=== PATIENT | female | born 1990 | race Caucasian/White ===

== ENCOUNTER 2023-01-18 19:18 | Outpatient (CLI) | payer OTHER, SELFPAY ==
[2023-01-18 15:14] LABS: TSH (W/Ref FT4) 1.54 uIU/mL (0.36-3.74)
== END 2023-01-18 19:19 | disposition home or self-care (01) ==
LOC: LBO 19:19
PROVIDERS: Visit Provider Advanced Practice Midwife
DX: O99.281 Endocrine, nutritional and metabolic diseases complicating pregnancy, first trimester (principal); E03.9 Hypothyroidism, unspecified; Z3A.01 Less than 8 weeks gestation of pregnancy
CPT/HCPCS: 36415; 84443

== ENCOUNTER 2023-01-31 09:46 | Outpatient (CLI) | payer OTHER, SELFPAY ==
--- OUTSIDE RECORDS SUMMARY | 2023-01-31 09:50 | XMS_ITS | Patient Health Record ---
Author Name Unknown Organization [facility] Address [address] [facility] [facility] [place] [address] Care Team Providers Care Carver And Checkerer Specials Name Role Phone Vicente Link Unavailable [phone] Allergies No Known Allergies Reason For Referral No Information Medications Medication SIG (Take, Route, Fr equency, Duration) Notes Start Date End Date Status Atorvastatin Calcium Active Active Daily Vitamin Active Social History Tobacco Use: Social History Observation Description Date Smoking Status WARNING: Information temporarily unavailable Tobacco Use/Smoking Question Answer Notes Are you a former smoker Alcohol Screen Question Answer Notes Did you have a drink containing alcohol in the p ast year? Yes Points 0 Interpretation Negative Sexual History Question Answer Notes Had sex in the past 12 months (vaginal, oral, or anal)? Yes Tobacco use other than smoking: Question Answer Notes Are you an other tobacco user? No Plan Of Treatment No Information Insurance Providers Payer Name Payer Address Payer Phone Subscriber Number Group Number Insured Name Patient Relationship to Insured Coverage Start Date Coverage End Date [employer] Choice POS [address] [place], [place] [phone] [id number] CaraFredKristen Self - patient is the insured Medical (General) History Medical History History ICD Code unknown allergies high cholesterol
--- OUTSIDE RECORDS SUMMARY | 2023-01-31 09:50 | XMS_ITS | Continuity of Care Document ---
Author Name Jose LAGUERRE FaceTagsJULIA Organization [facility] Care Team Providers Care Stamp Analyst Name Role Phone [facility] SHADE FaceTagsPREMA Unavailable Unavailable Problems Problem Status Onset Date Classification Date Reported Comments Source No data available for this section 11/20/2020 [facility] Immunizations Immunization Date Given Site Status Last Updated Comments So urce No data available for this section completed [facility] Procedures Procedure Code Date Perfomer Comments Source No data available for this section [facility]
[2023-01-31 10:22] LABS: HCG Quant, Pregnancy 31683 mIU/mL (1-3)
== END 2023-01-31 09:47 | disposition home or self-care (01) ==
LOC: LBO 09:48
PROVIDERS: Visit Provider Advanced Practice Midwife
DX: Z34.90 Encounter for supervision of normal pregnancy, unspecified, unspecified trimester (principal)
CPT/HCPCS: 36415; 84702

== ENCOUNTER 2023-02-02 02:07 | Outpatient (CLI) | payer OTHER, SELFPAY ==
[2023-02-02 10:16] LABS: HCG Quant, Pregnancy 40414 mIU/mL (1-3)
== END 2023-02-02 02:08 | disposition home or self-care (01) ==
LOC: LBO 02:07
PROVIDERS: Visit Provider Advanced Practice Midwife
DX: Z34.91 Encounter for supervision of normal pregnancy, unspecified, first trimester (principal)
CPT/HCPCS: 36415; 84702

== ENCOUNTER 2023-03-08 04:25 | Outpatient (CLI) | payer OTHER, SELFPAY ==
[2023-03-08 15:39] LABS: Panorama Kit Sent via Fed Ex
[2023-03-08 15:52] LABS: Abs Immature Grans 0.04 10^3/uL (0.0-0.06); Absolute Basophil Count 0.05 10^3/uL (0.0-0.2); Absolute Eosinophil Count 0.13 10^3/uL (0.0-0.7); Absolute Lymphocyte Count 2.25 10^3/uL (1.2-3.4); Absolute Monocyte Count 0.54 10^3/uL (0.1-0.8); Absolute Neutrophil Count 5.93 10^3/uL (1.2-6.7); Basophils % 0.6; Eosinophils % 1.5; Immature Grans % 0.4; Lymphocytes % 25.2; MCH 32.2 pg (27.0-33.0); MCHC 35.1 % (32.0-36.0); MCV 92 fL (80-95); MPV 9.6 fL (8.0-11.0); Neutrophils % 66.3; Platelet Count 297 10^3/uL (130-400); RBC 4.04 10^6/uL (3.93-5.22); RDW 11.1 % (11.7-14.6); RDW-SD 37.9 fL; WBC 8.94 10^3/uL (4.4-10.8)
[2023-03-08 18:40] LABS: TSH (W/Ref FT4) 1.36 uIU/mL (0.36-3.74)
[2023-03-09 08:12] LABS: Varicella IgG Antibody Positive (See Note)
[2023-03-09 08:16] LABS: Rubella IgG Ab (UVM) Positive (See Note)
[2023-03-09 08:28] LABS: Hepatitis B Surface Ag Negative (Negative)
[2023-03-09 09:55] LABS: Hepatitis C Ab w Rflx HCV PCR Negative (Negative)
[2023-03-09 10:03] LABS: HIV-1/2 Ag & Ab Screen Negative (Negative)
[2023-03-10 14:03] LABS: Syphilis IgG w/Reflex Nonreactive (Nonreactive)
== END 2023-03-08 04:26 | disposition home or self-care (01) ==
LOC: LBO 04:25
PROVIDERS: Visit Provider Advanced Practice Midwife
DX: Z34.91 Encounter for supervision of normal pregnancy, unspecified, first trimester
CPT/HCPCS: 36415; 86787; 86803; 86850; 86900; 86901; 87340; 87389; 84443; 85025; 86762; 86780

== ENCOUNTER 2023-03-08 15:30 | Outpatient (REF) | payer OTHER, SELFPAY ==
[2023-03-08 17:34] LABS: *AMPHETAMINES SCREEN URINE Negative (Negative); *BARBITURATES SCREEN URINE Negative (Negative); *BENZODIAZEPINES SCREEN URINE Negative (Negative); Cannabinoids THC Negative (Negative); Cocaine Screen,Urine Negative (Negative); METHADONE URINE SCREEN Negative (Negative); OPIATES URINE SCREEN Negative (Negative); Tricyclic Antidepressants Negative (Negative)
[2023-03-10 13:01] LABS: Chlamydia Result Negative (Negative); GC Result Negative (Negative)
[2023-03-15 10:39] LABS: Buprenorphine Negative ng/mL (Cutoff: 5.0); Norbuprenorphine Negative ng/mL (Cutoff: 2.5)
== END 2023-03-08 15:31 | disposition home or self-care (01) ==
LOC: LBN 15:30
PROVIDERS: Visit Provider Advanced Practice Midwife
DX: Z34.91 Encounter for supervision of normal pregnancy, unspecified, first trimester (principal); Z3A.11 11 weeks gestation of pregnancy; Z11.3 Encounter for screening for infections with a predominantly sexual mode of transmission
CPT/HCPCS: 80307; 80348; 87491; 87591; 87086

== ENCOUNTER 2023-04-11 11:43 | Outpatient (CLI) | payer OTHER, SELFPAY ==
[2023-04-14 17:35] LABS: AFP 42.6 ng/mL; Calculated age at EDD 34 years; Cigarette smoking status non-Smoker; GA used in risk estimate Dates estimate; IVF Pregnancy No; Initial or repeat testing Initial testing; Insulin dependent diabetes No; Maternal Weight 128 lbs; Number of Fetuses 1; Physician Phone Number 802-748-7300; Prev Pregnancy w/NTD No; RECOMMENDED FOLLOW UP None.; Results Summary Normal risk
== END 2023-04-11 11:44 | disposition home or self-care (01) ==
LOC: LBO 11:43
PROVIDERS: Visit Provider Advanced Practice Midwife
DX: Z34.92 Encounter for supervision of normal pregnancy, unspecified, second trimester (principal); Z3A.16 16 weeks gestation of pregnancy; Z36.89 Encounter for other specified antenatal screening
CPT/HCPCS: 36415; 82105

== ENCOUNTER 2023-05-26 17:40 | Observation (INO) | payer OTHER, SELFPAY ==
[2023-05-26 16:05] VITALS: BP 117/77; PULSE 76; RESP 16; TEMP 36.7
[2023-05-26 16:44] LABS: Bilirubin Negative (Negative); Blood Negative (Negative); Clarity Clear (Clear); Glucose Negative (Negative); Ketones Negative (Negative); Leukocyte Esterase Negative (Negative); Nitrite Negative (Negative); Urobilinogen 0.2 mg/dL (Up to 0.2)
[2023-05-26] MEDS: Lactated Ringers 1,000 ML 1000 ML IV (17:07)
[2023-05-26 17:40] VITALS: BP 117/77; PULSE 76; RESP 16; TEMP 36.7
--- NOTE | 2023-05-26 17:41 | HPE_ITS ---
Date of service: 05/26/23 Time of Service: 16:40 Assessment and Plan Assessment and plan (1) uterine contractions in second trimester, antepartum: Status: Acute Assessment and plan: 1. SSE is negative for dilation, Vaginal pathogen screen negative for infection, urine dip is normal 2. IV hydration ordered 3. Plan to discharge to home after IV hydration and encourage rest for the weekend OB-HPI Labor/Delivery History of Present Illness Reason for Visit: NST Chief Complaint: Uterine Contractions (tightening and mild cramping). KENNEY Calculator Estimated Delivery Date Method Current WG Current Estimate 09/25/23 LMP (Certain) 22w 4d Other Estimates 09/26/23 Ultrasound #1 22w 3d Comments: Kristen presented to during work with complaint of cramping today. Denies LOF or vaginal bleeding. States she feels this often. Agreed to assessment. KH History of Present Expected Delivery Route/Plan - CNM FOB/ - Dwayne Galvan (first child) BB Specific Issues/Plan 1. 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 Plan [facility] [place] 2 [place] 05/07 & [facility] consult 1b. [facility] recommends obtain old ECG or do new one (patient will bring info to next appt for records release 05/30/23) Notify CLINICAL ASSISTANT PROFESSOR and Pediatrics but should not prevent delivery at [facility] Note sent 05/09/23 to both groups 1c. marginal cord insertion, US 32 weeks scheduled 2. Hx Familial Hypercholesterolemia, was taking Crestor but stopped 3. Hx Hypothyroidism, taking levothyroxine 50 mcg, TSH 1.54 on 01/18/23-1.36 4. 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 Desires cfDNA screen: low risk x5, male Assessment: History Reviewed & Current Review of Systems All systems reviewed & are unremarkable except as noted in HPI and below (no LOF or bleeding) PFSH All Active Problems (Updated 05/26/23 @ 17:45 by Lorri Durand CNM) uterine contractions in second trimester, antepartum (Acute) Marginal insertion of umbilical cord affecting management of mother (Acute) (Acute) Familial hypercholesterolemia (Acute) Yyjkq-Xtnkkueal-Yvooc (WPW) syndrome (Acute) Hypothyroid in , antepartum (Acute) Missed menses (Acute) Medical History (Updated 05/26/23 @ 17:45 by Lorri Durand CNM) History of infertility Social History Smoking/Tobacco Use Status: Never Smoking risk assessment performed?: Yes History History 1 Para 0 Hx # Term Pregnancies 0 Multiple births 0 Hx # Pregnancies 0 Ectopic pregnancies 0 AB induced 0 Hx Number of Living Children 0 AB spontaneous 0 Meds Allergies and Home Medications Allergies Allergy/AdvReac Type Severity Reaction Status Date / Time No Known Drug Allergies Allergy Other (See Verified 05/03/23 08:48 Comment) Home Medications Medication Instructions Recorded Confirmed Type vitamin with calcium 1 tab PO DAILY #90 tabs 01/18/23 05/03/23 Rx no.72-iron 27 mg-folic acid 1 mg tablet ( Plus (calcium carbonate)) levothyroxine 50 mcg capsule 50 mcg PO DAILY #90 caps 05/03/23 05/03/23 Rx Exam Constitutional Constitutional: no acute distress Detailed Labor and Delivery Exam Irwin Score: Cervical Points Exam 0 1 2 3 Dilation Closed 1-2cm 3-4 cm 5-6cm Effacement 0-30% 40-50% 60-70% 80% Consistency Firm Medium Soft Station -3 -2 -1,0 +1,+2 Position Posterior Mid Anterior Monitor Mode: External Contraction Frequency(min): irregular Contraction Duration(sec): 20-40 Contraction Intensity: Mild Comments: SSE done, cervix is long, thick and closed, minimal vaginal discharge that appears physiologic. KH Fetus A Heart Rate Baseline: 130 HEENT Exam HEENT Exam: Normal Neck Exam Neck Exam: Normal Chest/Brest/Axilla Exam Chest Exam: Normal Breast Exam Breast Exam: Not Done Respiratory Exam Respiratory Exam: Normal Cardiovascular Exam Cardiovascular Exam: Normal Abdominal Exam Abdominal Exam: Normal Rectal Exam Rectal Exam: Not Done Exam Exam: Normal Extremities Exam Extremities Exam: Normal Back/Spine/Pelvis Exam Back Exam: Not Done Pelvis Adequate: Yes Skin Exam Skin Exam: Normal Neurological Exam Neurological Exam: Normal Psychiatric Exam Psychiatric Exam: Normal Results Abnormal Lab Findings: 05/26/23 16:30 Vaginal Vaginitis Screen - Final Risk Assessment Risk for Shoulder Dystocia Historical/Initial OB: NEGATIVE FOR: Pelvic Abnormality, Pre- BMI>30, Previous Shoulder Dystocia or Previous Macrosomia Risk for Pre-Eclampsia Date Initiated/Initials: not indicated, jk Yes, if one or more: NEGATIVE FOR: Hx Pre-E/Gest HTN, Chronic HTN, Multiple Gestation, Pre-gestational DM, Renal Disease, Systemic Lupus or APA Syndrome Yes, if 2 or more: POSITIVE FOR: Nulliparity; NEGATIVE FOR: Age>= 35 yrs, >10yr btwn pregnancies, BMI>30, ethinicty, Mother/Sister w/ Pre-E or Previous IUGR Risk for Post- Hemorrhage Initial: NEGATIVE FOR: Multiple Gestation, Previous PPH, Known Clotting Deficiency, Grand Multiparity or Anticoagulation Risks Reviewed Risks Reviewed Upon Admission: No ( contractions without labor)
--- NOTE | 2023-05-26 17:50 | DSE_ITS ---
Date of service: 05/26/23 Time of Service: 17:50 DS: Diagnosis Discharge Diagnosis (1) uterine contractions in second trimester, antepartum: Status: Acute Asessment and Plan: 1. Exam reveals patient is not in labor 2. Vaginal pathogen is negative X 3 3. IV hydration decreased frequency of uterine tightening 4. Discharged to home, plans to be out of work for the weekend and will call with any worsening symptoms. 5. Has follow up visit 05/30/23. Discharge Plan Disposition Patient Disposition: Home Condition: Good Discharge Details Reason For Visit: NST Attending Provider: Lorri Durand Primary Care Provider: Unknown,Unknown Hospital Course Hospital Course: Negative assessment for labor or vaginal infection. Cervix is long thick and closed on speculum exam. IV hydration and discharge to home to call if sy mptoms return or worsen. Home Meds and New Rx's Prescriptions: Continued levothyroxine 50 mcg capsule 50 mcg PO DAILY Qty: 90 3RF Plus (calcium carb) 27 mg iron- 1 mg tablet 1 tab PO DAILY Qty: 90 4RF Discharge Instructions Instructions: Labor (GEN) Activity:: Activity as Tolerated Activity:: Activity as Tolerated Equipment/Supplies:: No Equipment Needed Diet:: As Tolerated Discharge Orders Discharge Orders: Discharge Order (Routine); Ordered 05/26/23 Ordered By: Lorri Durand Discharge Data Discharge Physician: Lorri Durand OB:DS Summary Summary Procedures: Ante- patient. Contraception Discussed Contraception Discussed: No (N/A antepartum patient), Status at Discharge Functional status at discharge: independent ambulation Overall status at discharge: patient is back to baseline Mental Status: mental status grossly normal Speech and Movement: speech and movement normal Mood: congruent mood Affect: normal affect Time Spent with Patient providing and/or coordinating discharge services: Less than 30 minutes Quality:SDOH Health Related Social Needs: No Data to Display Exam Constitutional Constitutional: no acute distress, average body habitus and cooperative HEENT Exam HEENT Exam: Normal Neck Exam Neck Exam: Normal (normal visual inspection) Respiratory Exam Respiratory Exam: Normal Cardiovascular Exam Cardiovascular Exam: Normal Abdominal Exam Abdomen: Other (normal exam) Fundal Exam Comment: uterine size equals dates Rectal Exam Rectal Exam: Not Done Exam Perineum: Normal Comments: vagina and cervix normal Extremities Exam Extremity Exam: Normal (denies calf tenderness) and Full ROM Back/Spine/Pelvis Exam Back Exam: Normal Skin Exam Skin Exam: Normal Neurological Exam Neurological Exam: Normal Psychiatric Exam Psychiatric Exam: Normal PFSH All Active Problems uterine contractions in second trimester, antepartum (Acute) Marginal insertion of umbilical cord affecting management of mother (Acute) (Acute) Familial hypercholesterolemia (Acute) Lbkxo-Zwmozsybw-Bbttd (WPW) syndrome (Acute) Hypothyroid in , antepartum (Acute) Missed menses (Acute) Medical History History of infertility Social History Smoking/Tobacco Use Status: Never Smoking risk assessment performed?: Yes History History 1 Para 0 Hx # Term Pregnancies 0 Multiple births 0 Hx # Pregnancies 0 Ectopic pregnancies 0 AB induced 0 Hx Number of Living Children 0 AB spontaneous 0 DS: Data Data Completed and Pending Labs on day of discharge: Labs from last 24 hours 05/26/23 16:30 Urine Color Yellow Urine Clarity Clear Urine pH 6.0 Ur Specific Hutchinson 1.010 Urine Protein Negative Urine Ketones Negative Urine Blood Negative Urine Nitrite Negative Urine Bilirubin Negative Urine Urobilinogen 0.2 Ur Leukocyte Esterase Negative Urine Glucose Negative 05/26/23 16:30 Urine - Clean Catch Urine Culture - Pending Preliminary micro results at discharge 05/26/23 16:30 Urine Culture - Pending Urine - Clean Catch
== END 2023-05-26 17:55 | disposition home or self-care (01) ==
LOC: BCD 17:54 → OBS 17:54
PROVIDERS: Admitting Provider Advanced Practice Midwife; Visit Provider Advanced Practice Midwife
DX: O47.02 False labor before 37 completed weeks of gestation, second trimester (principal); Z3A.22 22 weeks gestation of pregnancy; O99.282 Endocrine, nutritional and metabolic diseases complicating pregnancy, second trimester; Z14.1 Cystic fibrosis carrier; O26.892 Other specified pregnancy related conditions, second trimester; E03.9 Hypothyroidism, unspecified; I45.6 Pre-excitation syndrome; O99.412 Diseases of the circulatory system complicating pregnancy, second trimester
CPT/HCPCS: 96360; 81003; 87086; 87480; 87510; 87660

== ENCOUNTER 2023-06-30 01:17 | Outpatient (CLI) | payer OTHER, SELFPAY ==
[2023-06-30 09:51] LABS: Glucose,1 Hr (Glucola) 130 mg/dL (80-140)
[2023-06-30 09:54] LABS: HCT 39.8 % (36.0-46.0); HGB 13.9 g/dL (11.2-15.7); MCH 33.4 pg (27.0-33.0); MCHC 34.9 % (32.0-36.0); MCV 96 fL (80-95); MPV 10.2 fL (8.0-11.0); Platelet Count 290 10^3/uL (130-400); RBC 4.16 10^6/uL (3.93-5.22); RDW-SD 42.4 fL; WBC 9.68 10^3/uL (4.4-10.8)
[2023-06-30 10:05] LABS: TSH (W/Ref FT4) 1.55 uIU/mL (0.36-3.74)
== END 2023-06-30 01:18 | disposition home or self-care (01) ==
LOC: LBO 01:17
PROVIDERS: Advanced Practice Midwife; PCP Nurse Practitioner Family; Visit Provider Advanced Practice Midwife
DX: Z34.92 Encounter for supervision of normal pregnancy, unspecified, second trimester (principal); O99.280 Endocrine, nutritional and metabolic diseases complicating pregnancy, unspecified trimester; E03.9 Hypothyroidism, unspecified; Z3A.27 27 weeks gestation of pregnancy
CPT/HCPCS: 36415; 82950; 85027; 84443

== ENCOUNTER → 2023-08-01 00:03 | Outpatient (CLI) | payer OTHER, SELFPAY ==
--- NOTE | 2023-08-01 06:30 | DI.US_ITS ---
Exam(s) US OB BIANCA WEIGHT EXAM: US OB BIANCA WEIGHT CLINICAL HISTORY: growth,z34.90,O43.199.marginal insertion umbilical cord. TECHNIQUE: Transabdominal obstetrical ultrasound performed. COMPARISON: US POCUS EXAM from 02/13/2023 FINDINGS: Number of fetuses: 1 position: cephalic Placental location: anterior No evidence of previa. The placental umbilical cord insertion site was not evaluated at this time. The patient will be recalled for evaluation of the site of the umbilical cord insertion location. BIOMETRIC DATA: BPD: 7.86cm, 31weeks 4days HC: 28.52cm, 31weeks 2days AC: 28.09cm, 32weeks 1day FL: 6.12cm, 31weeks 5days EFW: 1,858.35g, 4lb 2oz, 31.1% Composite Age: 31weeks 5days KENNEY: 09/28/2023 Heart Rate: 148bpm Amniotic fluid index: 18.32cm. The deepest pocket measures 7.1 cm. IMPRESSION: 1. Single live intrauterine gestation as above. 2. Estimated weight is 1858gms. This is the 31st percentile. 3. Amniotic fluid index is 18.3 cm. The deepest pocket measures 7.1 cm. DATA REPOSITORY:
== END ==
PROVIDERS: PCP Nurse Practitioner Family; Visit Provider Advanced Practice Midwife
DX: Z34.93 Encounter for supervision of normal pregnancy, unspecified, third trimester (principal); O43.193 Other malformation of placenta, third trimester; Z3A.33 33 weeks gestation of pregnancy
CPT/HCPCS: 76816

== ENCOUNTER 2023-08-06 09:39 | Outpatient (CLI) | payer OTHER, SELFPAY ==
[2023-08-06 09:55] VITALS: BP 93/50; PULSE 74; TEMP 36.2
[2023-08-06 09:58] VITALS: BP 93/50; PULSE 74
[2023-08-06] MEDS: Acetaminophen 500 MG TAB 1000 MG PO (10:19)
--- NOTE | 2023-08-06 12:01 | W.OBNST ---
Date of service: 08/06/23 Time of Service: 12:02 NST Evaluation Reason for NST Reasons for Nonstress Test: OTHER, SEE COMMENT Reason for NST Other: back pain Gestational Age Gestational Age in Weeks and Days: 32 Weeks and 6Days Test and Monitor Explained Test/Monitor Explained: Test Explained and Monitor Explained Vital Signs Blood Pressure: 93/50 Pulse: 74 Temperature: 97.1 F Urine Results Urine Protein: Negative Urine Ketones: Negative Urine Glucose: Negative Urine Blood: Negative NST Information Date on Monitor: 08/06/23 Time on Monitor: 09:47 Date off Monitor: 08/06/23 Time off Monitor: 10:34 Total Time on Monitor: 47 NST Interventions: PO Hydration Contraction Frequency: x2 10 min apart NST Evaluation Patient States Movement: Present FHR Baseline: 135 Variability: Moderate 6-25 bpm Accelerations: 15x15 Decelerations: None NST Results: Reactive Note Ultrasound Done: N/A. NST Note Note: Cxv ft/50% midpelvis, vtx -1, intact membranes UA neg, no labor, somewhat more favorable cvx than expected at 33 wks left mid-back pain, neg CVAT, likely musculoskeletal pain Note given to pt to reduce work hours, increase rest at home Next scheduled appt in 2 wks, will request appt this week for f/up given tylenol and warm compress, pt reports feeling better after resting discharged to home for further rest and self-care NST Reviewed and Verified by: Elisabeth Marrufo
[2023-08-06 12:06] VITALS: BP 93/50; PULSE 74; TEMP 36.2
== END 2023-08-06 13:19 ==
LOC: BCD 09:43 → OBS 09:51
PROVIDERS: PCP Nurse Practitioner Family; Visit Provider Advanced Practice Midwife
DX: O26.893 Other specified pregnancy related conditions, third trimester (principal); M54.9 Dorsalgia, unspecified; Z3A.32 32 weeks gestation of pregnancy; O47.03 False labor before 37 completed weeks of gestation, third trimester
CPT/HCPCS: 59025

== ENCOUNTER 2023-08-17 04:25 | Observation (INO) | payer OTHER, SELFPAY ==
[2023-08-17 04:30] VITALS: BP 125/79; PULSE 64; TEMP 36.4
[2023-08-17 04:48] VITALS: BP 125/79; PULSE 64; RESP 16; TEMP 36.4
--- NOTE | 2023-08-17 04:51 | HPE_ITS ---
Date of service: 08/17/23 Time of Service: 04:51 Assessment and Plan Assessment and plan (1) uterine contractions in third trimester, antepartum: Status: Acute Assessment and plan: 1. SSE done, vaginal pathogen, GC CT vaginal and GBS obtained 2. Some dilation and effacement . which is change from last week 3. IV fluid hydration 4. Consult with Dr. Thomas 5. Will consult with [facility] for transfer OB-HPI Labor/Delivery History of Present Illness Reason for Visit: Rule out labor Chief Complaint: Uterine Contractions. KENNEY Calculator Estimated Delivery Date Method Current WG Current Estimate 09/25/23 LMP (Certain) 34w 3d Other Estimates 09/26/23 Ultrasound #1 34w 2d Comments: Kristen presents with concern for contractions and passing small clots of brown and bright red blood on toilet tissue at 0330 today. States she woke to increased discomfort and noted blood and clot while voiding. States she has had gas like cramping for a day and had BM this morning and thought it would get better. Denies recent intercourse. No LOF. Baby is active. KH History of Present Expected Delivery Route/Plan - CNM FOB/ - Dwayne Galvan (first child) BB yes to circ Specific Issues/Plan 1. 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 Plan [facility] level 2 scan 05/07 & [facility] consult 1b. [facility] recommends obtain old ECG or do new one (patient will bring info to next appt for records release 05/30/23) Obtained 07/14/23 from 2004 Notify AUTO TECHNICIAN MECHANIC and Pediatrics but should not prevent delivery at [facility] Note sent 05/09/23 to both groups 1c. marginal cord insertion, US 32 weeks scheduled 07/31 - EFW 31%ile, BIANCA 18 2. Hx Familial Hypercholesterolemia, was taking Crestor but stopped 3. Hx Hypothyroidism, taking levothyroxine 50 mcg, TSH 1.54 on 01/18/23-1.36 3a. TSH @ 28 wks nml @ 1.55 4. 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 Desires cfDNA screen: low risk x5, male Informed Consent Informed Consent: Risk,Benefits,Alternatives Discussed (agrees to transfer if needed) and Other (potential transfer for PTL) Review of Systems All systems reviewed & are unremarkable except as noted in HPI and below (no other concerns) PFSH All Active Problems (Updated 08/17/23 @ 04:56 by Lorri Durand CNM) uterine contractions in third trimester, antepartum (Acute) uterine contractions in second trimester, antepartum (Acute) Marginal insertion of umbilical cord affecting management of mother (Acute) (Acute) Familial hypercholesterolemia (Acute) Pgnah-Uzucrmegk-Acgcc (WPW) syndrome (Acute) Hypothyroid in , antepartum (Acute) Medical History (Updated 08/17/23 @ 04:56 by Lorri Durand CNM) Missed menses History of infertility Family History (Updated 07/14/23 @ 13:09 by Destini Layne RN) Mother Hyperlipidemia Father Colon cancer Hyperlipidemia Paternal Grandfather Heart disease Paternal Grandmother Stroke Social History Smoking/Tobacco Use Status: Never Smoking risk assessment performed?: Yes History History 1 Para 0 Hx # Term Pregnancies 0 Multiple births 0 Hx # Pregnancies 0 Ectopic pregnancies 0 AB induced 0 Hx Number of Living Children 0 AB spontaneous 0 Meds Allergies and Home Medications Allergies Allergy/AdvReac Type Severity Reaction Status Date / Time No Known Drug Allergies Allergy Other (See Verified 08/11/23 08:46 Comment) Home Medications Medication Instructions Recorded Confirmed Type vitamin with calcium 1 tab PO DAILY #90 tabs 01/18/23 08/01/23 Rx no.72-iron 27 mg-folic acid 1 mg tablet ( Plus (calcium carbonate)) levothyroxine 50 mcg capsule 50 mcg PO DAILY #90 caps 05/03/23 08/01/23 Rx rosuvastatin 20 mg tablet (Crestor) 20 mg PO DAILY 07/14/23 08/01/23 History Exam Physical Exam Vital signs: Temp Pulse Resp BP 97.6 F 64 16 125/79 08/17/23 04:48 08/17/23 04:48 08/17/23 04:48 08/17/23 04:48 Vital Signs Reviewed: Yes Constitutional Constitutional: no acute distress, average body habitus and cooperative Detailed Labor and Delivery Exam Dilation: 1.5 Effacement (%): 90 station: 0 Irwin Score: Cervical Points Exam 0 1 2 3 Dilation Closed 1-2cm 3-4 cm 5-6cm Effacement 0-30% 40-50% 60-70% 80% Consistency Firm Medium Soft Station -3 -2 -1,0 +1,+2 Position Posterior Mid Anterior Amniotic Membrane Status: Intact Contraction Frequency(min): 3-4 Contraction Duration(sec): 50-60 Contraction Intensity: Mild/Moderate Fetus A Heart Rate Baseline: 130 Monitor Accelerations: 15 X 15 Monitor Decelerations: None Variability: Moderate (6-25 BPM) Categories: Category I HEENT Exam HEENT Exam: Normal Neck Exam Neck Exam: Normal (normal visual inspection) Respiratory Exam Respiratory Exam: Normal Cardiovascular Exam Cardiovascular Exam: Normal Rectal Exam Rectal Exam: Not Done Back/Spine/Pelvis Exam Back Exam: Normal Skin Exam Skin Exam: Normal Neurological Exam Neurological Exam: Normal Psychiatric Exam Psychiatric Exam: Normal Results Results Group Beta Strep: Done-Result Unknown Blood Type: O+ Rubella Status: Immune Varicella Immunity: Immune Risk Assessment Risk for Shoulder Dystocia Historical/Initial OB: NEGATIVE FOR: Pelvic Abnormality, Pre- BMI>30, Previous Shoulder Dystocia or Previous Macrosomia Risk for Pre-Eclampsia Date Initiated/Initials: not indicated, jk Yes, if one or more: NEGATIVE FOR: Hx Pre-E/Gest HTN, Chronic HTN, Multiple Gestation, Pre-gestational DM, Renal Disease, Systemic Lupus or APA Syndrome Yes, if 2 or more: POSITIVE FOR: Nulliparity; NEGATIVE FOR: Age>= 35 yrs, >10yr btwn pregnancies, BMI>30, ethinicty, Mother/Sister w/ Pre-E or Previous IUGR Risk for Post- Hemorrhage Initial: NEGATIVE FOR: Multiple Gestation, Previous PPH, Known Clotting Deficiency, Grand Multiparity or Anticoagulation Risks Reviewed Risks Reviewed Upon Admission: No
[2023-08-17] MEDS: Normal Saline 100 ML 10 ML (05:25)
[2023-08-17 08:29] VITALS: BP 146/81; PULSE 83
[2023-08-18] MEDS: Betamet Acet/Betamet Na Ph Inj. 30 MG/5 ML 6 MG (09:36)
[2023-08-18 14:49] LABS: Chlamydia Result Negative (Negative); GC Result Negative (Negative)
== END 2023-08-17 06:30 | disposition short-term general hospital (02) ==
LOC: OBS 14:24
PROVIDERS: Admitting Provider Advanced Practice Midwife; PCP Nurse Practitioner Family; Visit Provider Advanced Practice Midwife
DX: O47.03 False labor before 37 completed weeks of gestation, third trimester (principal); Z3A.34 34 weeks gestation of pregnancy; O99.413 Diseases of the circulatory system complicating pregnancy, third trimester; I49.8 Other specified cardiac arrhythmias; O99.283 Endocrine, nutritional and metabolic diseases complicating pregnancy, third trimester; E03.9 Hypothyroidism, unspecified; O26.893 Other specified pregnancy related conditions, third trimester; Z14.1 Cystic fibrosis carrier
CPT/HCPCS: 81513; 87481; 87491; 87591; 87661; 59025; 86003; 87081; 87086; 87480; 87510; 87660; G0378; J0702; J2540

== ENCOUNTER 2023-09-27 16:21 | Outpatient (REF) | payer OTHER, SELFPAY | END 2023-09-27 16:22 | disposition home or self-care (01) | LOC: LBN 16:21 | PROVIDERS: Visit Provider Advanced Practice Midwife | DX: N94.9 Unspecified condition associated with female genital organs and menstrual cycle (principal); Z39.2 Encounter for routine postpartum follow-up; N39.3 Stress incontinence (female) (male) | CPT/HCPCS: 87480; 87510; 87660 ==